=== PATIENT | female | born 1995 | race Caucasian/White ===

== ENCOUNTER → 2022-05-10 | Outpatient (CLI) | payer OTHER ==
--- NOTE | 2022-05-10 16:21 | Diagnostic Imaging Report ---
Indication: Prior surgery, reinjury. No priors. 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 No loose body or joint effusion. No acute appearing articular irregularity. Impression: No acute-appearing abnormality. Dictated by: Dictated on workstation # [id number]
== END ==
LOC: ORTHO 11:20
PROVIDERS: ATTEND Orthopaedic Surgery
DX: Z47.89 Encounter for other orthopedic aftercare (principal); S89.92XD Unspecified injury of left lower leg, subsequent encounter; X58.XXXD Exposure to other specified factors, subsequent encounter
CPT/HCPCS: 73562; 99213

== ENCOUNTER 2022-07-14 05:28 | Outpatient (CLI) | payer OTHER ==
[~2022-07-14] VITALS: Ht 160 cm; Wt 104.5 kg
[~2022-07-14 05:28] MED LIST: BUSP10TA95 PO; FAMO-144 PO; LYCO10CA2 PO; PED18TAB2 PO
[2022-07-14] MEDS ORDERED: FAMO40OR5 PO (08:15)
[2022-07-14] MEDS ORDERED: ETHI1TAB31 PO (08:15)
[2022-07-14] MEDS ORDERED: RIZA10TA37 PO (08:15)
== END 2022-07-19 08:48 | disposition home or self-care (01) ==
LOC: PREOP 05:28
PROVIDERS: ATTEND Orthopaedic Surgery
DX: Z01.818 Encounter for other preprocedural examination (principal); M22.2X2 Patellofemoral disorders, left knee

== ENCOUNTER 2022-07-22 05:59 | Day surgery (SDC) | payer OTHER ==
[~2022-07-22] VITALS: Ht 160 cm; Wt 104.5 kg
[2022-07-22] VITALS (9 sets, daily range): BP systolic 101–120; BP diastolic 53–79
[~2022-07-22 05:59] MED LIST changes: +ETHI1TAB31 PO; +FAMO40OR5 PO; +RIZA10TA37 PO
[2022-07-22] MEDS ORDERED: CLINDAMYCIN 600 MG/50 ML IVPB 50 ML IV ONE (06:15)
[2022-07-22] MEDS: LACTATED RINGERS 1,000 ML IV PRN ×2 (06:44→09:41)
[2022-07-22] MEDS ORDERED: BUPIVACAINE 0.25% 30 ML (SENSORCAINE) VIAL ONE (06:52)
[2022-07-22] MEDS ORDERED: BUP/EPI 0.25% 1:200,000 (MARCAINE) 30 ML VIAL ONE (07:11)
[2022-07-22] MEDS ORDERED: fentaNYL INJ 100 MCG/2 ML AMP ONE ×2 (07:42→09:33)
[2022-07-22] MEDS ORDERED: ONDANSETRON 4 MG/2 ML (SDV) Z0FRAN ONE (07:42)
[2022-07-22] MEDS ORDERED: LIDOCAINE PF 2% 5 ML (XYLOCAINE) VIAL ONE (07:42)
[2022-07-22] MEDS ORDERED: proPOfol 200 MG/20 ML (DIPRIVAN) VIAL IV ONE (07:42)
[2022-07-22] MEDS ORDERED: SEVOFLURANE (ULTANE) 15 ML INHAL SOLN ONE (07:42)
[2022-07-22] MEDS ORDERED: MIDAZOLAM 2 MG/2 ML (VERSED) VIAL ONE (07:43)
--- NOTE | 2022-07-22 07:58 | Progress Note-Pre Operative ---
Pre-Operative Progress Note Date of Available H&P: Jun 29, 2022 Date H&P Reviewed: Jul 22, 2022 Time H&P Reviewed: 07:45 History & Physical: H&P Reviewed, Patient Examed, No changes noted Pre-Operative Diagnosis: Left Patellar Maltracking GLORIA OH MD Jul 22, 2022 07:58
[2022-07-22] MEDS ORDERED: BUP/EPI 0.25% 1:200,000 (MARCAINE) 30 ML VIAL INJ ONE (09:32)
--- NOTE | 2022-07-22 09:54 | Anesthesia-General Post-Op ---
General Patient Condition Mental Status/LOC: Same as Preop Cardiovascular: Satisfactory Nausea/Vomiting: Absent Respiratory: Satisfactory Pain: Controlled Complications: Absent Post Op Complications Complications None Follow Up Care/Instructions Patient Instructions None needed. Anesthesia/Patient Condition Patient Condition Patient is doing well, no complaints, stable vital signs, no apparent adverse anesthesia problems. No complications reported per nursing. JACKIE LEOS CRNA Jul 22, 2022 09:54
--- NOTE | 2022-07-22 09:58 | Operative Report - Ortho ---
Operative Report Surgeon (s)/Group Fitness Assistant Department Head (s) Surgeon GLORIA OH MD Group Fitness Assistant Department Head n/a Pre-Operative Diagnosis Left Patellar Maltracking Post-Operative Diagnosis same Operative Report Date of Procedure: Jul 22, 2022 Name of Procedure Performed: Left Knee Arthroscopy with Lateral Release Description & Findings After obtaining informed consent and marking the patient in the preoperative holding area, the patient was administered IV antibiotics and taken to the operating room. General anesthesia was induced. The right lower extremity was placed in the well leg valdes and the left leg was placed in the arthroscopic valdes. Surgical timeout was taken. The left lower extremity was prepped and draped in the usual sterile fashion. An anterolateral portal was established and a diagnostic knee arthroscopy was performed with the following findings: the patellofemoral portion of the joint demonstrated grade II change moreso in the lateral facet and trochlear groove, the patella demonstrated slight lateral over hang, the gutters were free of loose bodies, the medial compartment dem onstatred intact medial meniscus and articular cartilage, lateral compartment with intact meniscus and articular cartilage. An anteromedial portal was established. Shaver was inserted and articular cartilage was smoothed in the patellofemoral joint. Camera was moved to the medial portal. A SERFAS hook probe was introduced laterally and a lateral release was performed. Release was carried from the suprapatellar pouch down to the inferior border of the patella. Release demonstrated good separation of ti ssues. Patella demonstrated less lateral overhang. Instruments were withdrawn. Wounds were closed with 3-0 nylon, injected with local anesthetic, and dressed with xeroform, 4x4s, ABD, cast padding, and MIRIAM wrap. Patient tolerated the procedure well and was stable to the recovery room. Anesthesia Type General Estimated Blood Loss minimal Specimen(s) collected/removed None GOLRIA OH MD Jul 22, 2022 09:58
[2022-07-22] MEDS ORDERED: ONDANSETRON 4 MG/2 ML (SDV) Z0FRAN IVP PRN (10:00)
[2022-07-22] MEDS ORDERED: morphine INJ 10 MG/ML 1ML (SYR OR VIAL) IVP ONE (10:00)
[2022-07-22] MEDS ORDERED: MEPERIDINE (DEMEROL) INJ 50 MG/ML IVP ONE (10:00)
[2022-07-22] MEDS ORDERED: OXC5T PO (10:01)
== END 2022-07-22 12:21 | disposition home or self-care (01) ==
LOC: SDC 05:59
PROVIDERS: ATTEND Orthopaedic Surgery
DX: M22.2X2 Patellofemoral disorders, left knee (principal); E66.01 Morbid (severe) obesity due to excess calories; Z68.41 Body mass index [BMI] 40.0-44.9, adult
CPT/HCPCS: 84703; 87081

== ENCOUNTER → 2022-08-04 | Outpatient (CLI) | payer OTHER ==
[~2022-08-04] MED LIST changes: +OXC5T PO
== END ==
LOC: ORTHO 09:11
PROVIDERS: ATTEND Orthopaedic Surgery
DX: Z47.89 Encounter for other orthopedic aftercare (principal)

== ENCOUNTER → 2022-09-06 | Outpatient (CLI) | payer OTHER | LOC: ORTHO 08:56 | PROVIDERS: ATTEND Orthopaedic Surgery | DX: Z47.89 Encounter for other orthopedic aftercare (principal) ==

== ENCOUNTER → 2022-10-18 | Outpatient (CLI) | payer OTHER | LOC: ORTHO 08:31 | PROVIDERS: ATTEND Orthopaedic Surgery | DX: Z47.89 Encounter for other orthopedic aftercare (principal) ==

== ENCOUNTER → 2023-01-18 | Outpatient (CLI) | payer OTHER | LOC: ORTHO 08:30 | PROVIDERS: ATTEND Orthopaedic Surgery | DX: M25.562 Pain in left knee (principal) | CPT/HCPCS: 99213 ==